=== PATIENT | male | born 1995 | race Caucasian/White ===

== ENCOUNTER 2021-02-01 22:35 | Emergency (ER) | payer SELFPAY ==
[2021-02-01 22:38] VITALS: BP 140/61; PULSE 88; RESP 18; TEMP 36.6; O2SAT 100; BMI 25.1
[2021-02-01] MEDS: Ketorolac Tromethamine 15 MG/ML VIAL IM (23:27)
[2021-02-01] MEDS: Acetaminophen 325 MG TABLET 975 MG PO (23:28)
[2021-02-01 23:32] LABS: Appearance Urine CLEAR; Color Urine YELLOW; Glucose Urine UA NEG (NEG); Leukocyte Esterase Urine NEG (NEG); Nitrite Urine NEG (NEG); Specific Gravity - Urine >= 1.030 (1.005-1.025); Urine Blood NEG (NEG); Urine Ketones NEG (NEG); Urine Protein NEG (NEG-TRACE)
--- NOTE | 2021-02-01 23:36 | ED.BACK ---
HPI - Back Pain/Injury General Chief Complaint: Back Pain/Injury Stated Complaint: Back pain Time Seen by Provider: 02/01/21 23:01 Source: patient and freelance interpreter/translator Mode of arrival: ambulatory History of Present Illness HPI Narrative: This is a 25-year-old male with out significant past medical history who presents 1 week after having injured his back at work and reporting it to his work and states he is still having back pain despite using [id number] Tylenol and ibuprofen. He denies any fevers, chills, nausea, vomiting, diarrhea and denies any fecal/urinary dysfunction. In addition, patient denies any radiation of the pain/numbness/tingling into either lower extremity. Related Data Previous Rx's Medication Instructions Recorded cyclobenzaprine 10 mg PO BEDTIME PRN #3 tab 02/02/21 ketorolac 10 mg PO Q6H PRN 5 Days #20 tab 02/02/21 Allergies Allergy/AdvReac Type Severity Reaction Status Date / Time No Known Allergies Allergy Verified 02/01/21 22:48 Review of Systems Review of Systems: Pertinent positives and negatives as stated in HPI 10 point review of systems is otherwise negative. PMFSH Past Medical History Source: nursing notes reviewed Medical History Diabetes Social History Social History Smoking Status: Current every day smoker Substance Use Type: Marijuana Advance Directives: No Advance Directives Information Provided: No Physical Exam Vital Signs: Vital Signs: Last Vital Signs Temp 97.8 F 02/01/21 22:38 Pulse 88 02/01/21 22:38 Resp 18 02/01/21 22:38 BP 140/61 H 02/01/21 22:38 Pulse Ox 100 02/01/21 22:38 Body Mass Index 25.1 VITAL SIGNS: Reviewed. GENERAL: Well developed, well nourished, in no acute distress. HEAD: Normocephalic/atraumatic, OROPHARYNX: no oral lesions noted, posterior pharynx clear NECK: Supple, no adenopathy LUNGS: Normal breath sounds. No adventitious sounds or accessory muscle use. SpO2<100> CARDIOVASCULAR: Regular rate and rhythm without noted murmurs ABDOMEN: Soft, non-tender, non-distended with bowel sounds. No rigidity. No guarding. No palpable masses or hernias noted BACK: No midline vertebral tenderness noted, full range of motion of discomfort on extension, there is tenderness in the paraspinal area. NEUROLOGIC: Alert and oriented x 4. Strength and sensation to light touch were grossly intact x 4. Course Course Course Narrative: This is a 25-year-old male with history and clinical presentation back pain with spasm and doubt urinary issues. Patient received combination analgesics as well as obtaining a urinalysis which was negative for any acute findings. On re-evaluation patient feels much improved and is ready for discharge. MDM - Back Pain/Injury Lab Data Labs: Lab Results 02/01/21 Range/Units 23:21 Urine Color YELLOW Urine Appearance CLEAR Urine pH 6.0 (5.0-8.0) Ur Specific Drake >= 1.030 H (1.005-1.025) Urine Protein NEG (NEG-TRACE) MG/DL Urine Glucose (UA) NEG (NEG) MG/DL Urine Ketones NEG (NEG) MG/DL Urine Blood NEG (NEG) Urine Nitrite NEG (NEG) Ur Leukocyte Esterase NEG (NEG) Discharge Plan Discharge Clinical Impression: Back muscle spasm Back pain Qualifiers: Back pain location: low back pain Chronicity: acute Back pain laterality: bilateral Sciatica presence: without sciatica Qualified Code(s): M54.5 - Low back pain Patient Disposition: Home, Self-Care Instructions: Low Back Strain (ED), Muscle Spasm (ED), Lower Back Exercises (ED) Additional Instructions: 1. Tylenol 1000 mg, por v?a oral, cada 6 horas seg?n sea necesario para controlar el dolor. No exceda los 4000 mg en 24 horas. 2. Parches de lidoca?na, estos est?n disponibles en todos los [facility] y deben aplicarse en el ?chris de m?xima sensibilidad isis se indica en el empaque exterior. 3. Debe hacer un seguimiento de la danica del empleado de navarrete trabajo para obtener m?s recomendaciones y dimitri reevaluaci?n. No dude en volver al servicio de urgencias si experimenta un empeoramiento ludmila de yulissa s?ntomas. Prescriptions: New ketorolac 10 mg tablet 10 mg PO Q6H PRN (Reason: pain) 5 Days Qty: 20 RF: 0 cyclobenzaprine 10 mg tablet 10 mg PO BEDTIME PRN (Reason: muscle spasm) Qty: 3 RF: 0 Referrals: Physician,None [Primary Care Provider] - 2 days Print Language: Upper Sorbian
[2021-02-01] MEDS: Lidocaine 4 % Patch ADH..PATCH 1 PATCH TRANSDERMA (23:43)
== END 2021-02-02 00:12 | disposition home or self-care (01) ==
PROVIDERS: Emergency Provider Student in an Organized Health Care Education/Training Program
DX: M54.5 Low back pain (principal); M62.838 Other muscle spasm; Z79.899 Other long term (current) drug therapy
CPT/HCPCS: 81003; 96372; 99284; J1885

== ENCOUNTER 2021-03-20 21:50 | Emergency (ER) | payer OTHER, SELFPAY ==
[2021-03-20 22:16] VITALS: BP 133/66; PULSE 80; RESP 18; TEMP 36.7; O2SAT 98; BMI 26.4
--- NOTE | 2021-03-20 22:55 | ED.GENADULT ---
HPI - General Adult General Chief complaint: General Medical Stated complaint: Covid symptoms Time Seen by Provider: 03/20/21 22:29 Source: patient Mode of arrival: ambulatory Limitations: no limitations History of Present Illness HPI narrative: 25 y/o healthy male presenting to the ER with 2 days of body aches, dry cough, headaches and overall not feeling well. He states his entire body hurts. He has a mild sore throat and dry cough as well. No SOB, OCONNOR or chest pain. He presents with his and 2 children who have the same symptoms. They have not been monitoring temps at home. He is eating and drinking normally. He works at [employer] and is concerned he may have been exposed to COVID-19. MD complaint: COVID symptoms Onset (ago): day(s) (2) Location: head, chest, back, left, right, upper extremity and lower extremity Radiation: non-radiation Severity: moderate Quality: aching Pain Consistency: constant Relieving factors: medication and rest Exacerbating factors: movement Associated symptoms: cough, fever/chills, headaches, loss of appetite and malaise Treatments prior to arrival: none Related Data Previous Rx's Medication Instructions Recorded cyclobenzaprine 10 mg PO BEDTIME PRN #3 tab 02/02/21 ketorolac 10 mg PO Q6H PRN 5 Days #20 tab 02/02/21 ibuprofen 600 mg PO TID PRN #20 tab 03/20/21 Allergies Allergy/AdvReac Type Severity Reaction Status Date / Time No Known Allergies Allergy Verified 03/20/21 22:16 Review of Systems Review of Systems: Constitutional: + Fever, + Chills ENT/Mouth: + sore throat, No Rhinorrhea, No Swallowing Difficulty Cardiovascular: No Chest Pain, No SOB, No Orthopnea, No Edema Respiratory: + Cough, No Sputum, No Wheezing, No dyspnea Gastrointestinal: No Nausea, No Vomiting, No Diarrhea, No abdominal Pain Genitourinary: No Dysuria, No Urinary Frequency, No Hematuria Musculoskeletal: No joint pain, + Myalgias Skin: No Skin Lesions, No rash Neuro: No Weakness, No Numbness, No Dizziness, + Headache Psych: No Anxiety/Panic, No Depression Heme/Lymph: No Bruising, No Lymphadenopathy PMFSH Past Medical History Medical History (Updated 03/20/21 @ 22:56 by JOSE R Varela) Asthma Diabetes Social History Social History Smoking Status: Current every day smoker Substance Use Type: Marijuana Advance Directives: No Advance Directives Information Provided: No Physical Exam Vital Signs: Vital Signs: Last Vital Signs Temp 98.1 F 03/20/21 22:16 Pulse 80 03/20/21 22:16 Resp 18 03/20/21 22:16 BP 133/66 03/20/21 22:16 Pulse Ox 98 03/20/21 22:16 Body Mass Index 26.4 Appearance: Alert. Oriented X3. No acute distress. Eyes: Pupils equal, round and reactive to light. ENT: Mild generalized erythema of posterior oropharynx without tonsillar swelling or exudate Neck: Normal inspection. Neck supple. CVS: Normal heart rate and rhythm. Pulses normal. Respiratory: No respiratory distress. Breath sounds normal. Abdomen: Soft and nontender. +BS x4 Skin: Skin warm and dry. Normal skin color. Normal skin turgor. No rashes. Extremities: No lower extremity edema. Neuro: Oriented X 3. No motor deficit. No sensory deficit. Course Course Course Narrative: 25 y/o male presenting with COVID symptoms. Exam and VS are normal. He is non-toxic appearing. Will get Viral PCR and call with the results. Stable for d/c home. Medical Decision Making Lab Data Labs: Lab Results 03/20/21 Range/Units 22:47 Coronavirus (PCR) NEGATIVE (Negative) Influenza Type A (PCR) NEGATIVE (Negative) Influenza Type B (PCR) NEGATIVE (Negative) RSV RNA Qual (PCR) NEGATIVE (Negative) Critical Care Time Critical Care Time Critical Care Time: No Discharge Plan Discharge Clinical Impression: Acute viral syndrome Patient Disposition: Home, Self-Care Instructions: Viral Syndrome (ED), COVID-19 (Coronavirus Disease 2019) (ED) Additional Instructions: You were tested for COVID-19, Influenza & RSV today. We will call you with the results tonight. Your exam and oxygen levels were normal. Rest. Drink plenty of fluids. Do not go out in public for the next 10 days. Take over the counter cold/flu medications as needed for your symptoms. Take Tylenol and/or Motrin as needed for fevers and body aches. Follow up with your doctor this week. If you shortness of breath worsens , if you develop difficulty breathing or any other concerning symptom come back to the ER for further evaluation. Prescriptions: New ibuprofen 600 mg tablet 600 mg PO TID PRN (Reason: fever or pain) Qty: 20 RF: 0 No Action ketorolac 10 mg tablet 10 mg PO Q6H PRN (Reason: pain) 5 Days Qty: 20 RF: 0 cyclobenzaprine 10 mg tablet 10 mg PO BEDTIME PRN (Reason: muscle spasm) Qty: 3 RF: 0 Stand Alone Forms: Work/School Release Interventions: ED Discharge Assessment Last Done: 03/20/21 23:22 Discharge Date/Time: 03/20/21 23:13
[2021-03-20 23:45] LABS: Influenza A PCR NEGATIVE (Negative); Influenza B PCR NEGATIVE (Negative); Resp Syncy Virus RNA Qual PCR NEGATIVE (Negative); SARS COV2 PCR INHOUSE NEGATIVE (Negative)
--- NOTE | 2021-03-21 00:06 | PC.NURSE ---
CALL PLACED TO FAMILY FOR RESULTS NO ANSWER AND NO VOICE MAIL AVAILABLE.
== END 2021-03-20 23:13 | disposition home or self-care (01) ==
PROVIDERS: Physician Assistant; Emergency Provider Emergency Medicine
DX: B34.9 Viral infection, unspecified (principal); Z20.822 Contact with and (suspected) exposure to COVID-19; J02.9 Acute pharyngitis, unspecified; E11.9 Type 2 diabetes mellitus without complications; J45.909 Unspecified asthma, uncomplicated; F17.200 Nicotine dependence, unspecified, uncomplicated; F12.90 Cannabis use, unspecified, uncomplicated
CPT/HCPCS: 0241U; 36415; 99283

== ENCOUNTER 2021-03-27 14:02 | Outpatient (REF) | payer OTHER, SELFPAY ==
[2021-03-27 14:31] LABS: COVID-19 Test Negative (Negative)
== END 2021-03-27 14:03 | disposition home or self-care (01) ==
LOC: HO.LAB 14:02
PROVIDERS: Visit Provider Internal Medicine
DX: Z20.822 Contact with and (suspected) exposure to COVID-19 (principal)
CPT/HCPCS: 36415; 87635; C9803